=== PATIENT | male | born 1980 | race Native Hawaiian/Other Pacific Islander ===

== ENCOUNTER 2019-06-27 12:28 | Outpatient (CLI) | payer OTHER | END 2019-06-27 23:45 | disposition home or self-care (01) | LOC: RAD 12:28 | DX: K21.9 Gastro-esophageal reflux disease without esophagitis (principal); R13.10 Dysphagia, unspecified ==

== ENCOUNTER 2019-09-05 07:27 | Outpatient (CLI) | payer OTHER | END 2019-09-05 21:49 | disposition home or self-care (01) | LOC: RAD 07:27 | DX: K21.9 Gastro-esophageal reflux disease without esophagitis (principal); R13.10 Dysphagia, unspecified ==